=== PATIENT | male | born 1975 | race Caucasian/White ===

== ENCOUNTER → 2021-10-07 14:48 | Outpatient (CLI) | payer BC, SELFPAY ==
--- NOTE | 2021-10-07 14:59 | CA_ITS ---
APPROVED REPORT EXAM: Comprehensive 2D, Doppler, and color-flow Echocardiogram Senior Net Architect: Bryanna Hebert, MARTA, RVS Ht: 5 ft 11 in Wt: 230lbs BSA: 2.24 BP: 140/96 mmHg Indications: AI, SVT, HTN Echo Enhancing Agent Comments: Overring aorta/aneurysmal Ascending aorta 2D Dimensions IVSd 1.26 cm LVEF (Visual) 70.70 % PWd 1.02 cm LA Volume 35.50 mL LVDd 5.52 cm LA Volume Index 15.859658 mL/m2 (M/F) 16-34 LVDs 3.28 cm Aortic Root 3.99 cm Left Atrium 2.17 cm LVOT 2.36 cm (M/F) 1.5-2.5 Ascending Aorta 3.90 cm M-Mode Dimensions LA Diam 2.52 cm (1.9-4.0) LVDd 5.27 cm (3.5-5.7) Ao Diam 4.29 cm (2.0-3.7) LVDs 3.58 cm (3.5-5.7) EF (Teich) 59.80% EPSs 0.54 cm FS 32.10% EDV (Teich) 133.60 mL TAPSE 3.20 (<1.7) ESV (Teich) 53.70 mL LV Diastology E Decel Time 337.00 (160-240 msec) E/A Ratio 0.75 MED E' 6.50 (< 7 cm/sec) MED A' 10.50 cm/s E'/MED E' Ratio 13.88 (>14) LAT E' 7.10 (<10 cm/sec) LAT A' 12.90 cm/s E/LAT E' Ratio 12.70 (>14) Aortic Valve LVOT Max 97.00 (70-110 cm/s) LVOT VTI 20.16 cm AoV Peak Se. 293.00 (50-130 cm/s) AI PHT 460.00 ms AO Peak GR. 34.40 mmHg AO Mean GR. 19.10 (<5 mmHg) AO VTI 51.11 (18-25 cm) MARCI (VTI) 1.73 (2.5-4.5 cm2) Mitral Valve MV A Velocity 121.00 (40-130 cm/s) E/A Ratio 0.75 MV Decel. Time 337.00 (160-240 ms) MV Mean Gr. 2.70 (<2mmHg) Pulmonary Valve PV Peak Velocity 67.00 (50-150 cm/s) Tricuspid Valve TR P. Velocity 158.00 cm/s RAP Estimate 10.00 mmHg RVSP 19.90 mmHg Left Ventricle Left atrium is mildly enlarged, left ventricle is normal size, mild concentric left ventricular hypertrophy, visually estimated ejection fraction 55% with no regional wall motion abnormality, diastolic parameters are inconclusive. Right Ventricle Right atrium and right ventricular normal size and contractility. Aortic Valve Aortic valve is thickened and calcified likely bicuspid aortic valve morphology is not well visualized. The mean gradient across valve is 19 mmHg, valve area is 1.7 cm??? represents mild aortic stenosis. There is trace aortic insufficiency. Linear echodensity across the left ventricular outflow tract is of questionable etiology. Mitral Valve Multiple leaflets are minimally thickened, there is mild mitral regurgitation. Tricuspid Valve Tricuspid valve grossly normal, there is trace tricuspid regurgitation. Pulmonic Valve Pulmonic valve is poorly visualized. Great Vessels Aortic root and ascending aorta is enlarged measuring 4.0 cm. Inferior vena cava is poorly visualized. Pericardium No significant pericardial effusion noted. Conclusion 1. Mildly enlarged left atrium, normal left ventricular size, mild concentric left ventricular hypertrophy, visually estimated ejection fraction 55% with no regional wall motion abnormality, diastolic parameters inconclusive in the study. 2. Abnormal aortic valve as described above likely bicuspid aortic valve with mild aortic stenosis, there is trace aortic insufficiency, there is linear echodensity seen in the left ventricular outflow track of questionable etiology, a transesophageal echocardiogram is recommended. 3. Enlarged ascending aorta and aortic root. 4. No significant pericardial effusion noted. 5. Mild mitral and trace tricuspid regurgitation. 6. Inferior vena cava is poorly visualized. Electronically belkis
== END ==
PROVIDERS: PCP Family Medicine; Visit Provider Internal Medicine Cardiovascular Disease
DX: I47.1 Supraventricular tachycardia (principal); I35.1 Nonrheumatic aortic (valve) insufficiency; I10 Essential (primary) hypertension; E78.5 Hyperlipidemia, unspecified; R00.2 Palpitations
CPT/HCPCS: 93306